=== PATIENT | male | born 2000 | race Caucasian/White ===

== ENCOUNTER 2019-05-06 16:27 | Emergency (ER) | payer BC, OTHER ==
[2019-05-06 16:56] VITALS: O2SAT 96
[2019-05-06] MEDS ORDERED: ACETAMINOPHEN 500 MG TAB PO ONE (17:07)
[2019-05-06] MEDS ORDERED: IBUPROFEN 200 MG TAB PO ONE (17:07)
--- NOTE | 2019-05-06 17:07 | ED.PDOC ---
History of Present Illness - General Chief Complaint: General Stated Complaint: right pectoral pain Time Seen by Provider: 05/06/19 16:57 - History of Present Illness Initial Comments: 18 yo M PMH R pectoralis muscle tear confirmed by outside facility MRI 3 months ago presents today c/o r sided pectoralis muscle pain after working out 3 hours ago. Denies trauma fever chills nausea vomiting diarrhea esmer chest pain sob diaphoresis. No change in diet rest is disturbed by new job no change in bowel or bladder denies drinking or smoking has no PMD for follow admits FH DM denies FH HTN no other c/o today. Pt explains this feels nothing close to when her tore his R pectoralis muscle 3 months ago he just wanted 'to get it checked out since I'm supposed to wrestle on Sunday' Allergies/Adverse Reactions: Allergies NO KNOWN ALLERGY Allergy (Verified 05/06/19 16:56) Home Medications: Ambulatory Orders Acetaminophen [Tylenol] 650 mg PO Q6H PRN #30 tab 05/06/19 Ibuprofen 600 mg PO Q6H PRN #20 tab 05/06/19 Review of Systems - Review of Systems Constitutional: States: no symptoms reported EENTM: States: no symptoms reported Respiratory: States: no symptoms reported Cardiology: States: no symptoms reported Gastrointestinal/Abdominal: States: no symptoms reported Genitourinary: States: no symptoms reported Musculoskeletal: States: see HPI, muscle pain Skin: States: no symptoms reported Neurological: States: no symptoms reported All other Systems: Reviewed and Negative Past Medical History (General) - Patient Medical History Hx Stroke: No Hx Dementia: No Hx Asthma: No Hx Cardiac Disorders: No Hx Pacemaker: No Hx Hypertension: No Hx Thyroid Disease: No Surgical History: no surgical history - Social History Hx Tobacco Use: No Family Medical History - Family History Mother Living Status: Still Living Hx Family Diabetes: Yes Physical Exam - Physical Exam General Appearance: No apparent distress Eye Exam: bilateral normal Ears, Nose, Throat: normal ENT inspection Neck: full range of motion Respiratory: no respiratory distress, other - tenderness to palpation over right chest worsened by movement no ecchymosis bunching or assymmetry Cardiovascular/Chest: regular rate, rhythm Gastrointestinal/Abdominal: non tender, soft Extremity: normal range of motion 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 Copy, Patient Portal Self Enrollment Instructions: Muscle Strain (DC), Costochondritis (DC) Prescriptions: Acetaminophen [Tylenol] 650 mg PO Q6H PRN #30 tab PRN Reason: Pain Ibuprofen 600 mg PO Q6H PRN #20 tab PRN Reason: Pain Home Medications: Ambulatory Orders Acetaminophen [Tylenol] 650 mg PO Q6H PRN #30 tab 05/06/19 Ibuprofen 600 mg PO Q6H PRN #20 tab 05/06/19 Additional Instructions: Follow up with pcp in 1-2 days, no wrestling this Sunday to avoid re-injury
[2019-05-06 17:28] VITALS: BP 144/85; TEMP 97.9
== END 2019-05-06 17:33 | disposition home or self-care (01) ==
LOC: ER 16:27
DX: S29.011A Strain of muscle and tendon of front wall of thorax, initial encounter (principal); R07.1 Chest pain on breathing; Y93.B3 Activity, free weights; Z87.828 Personal history of other (healed) physical injury and trauma